=== PATIENT | female | born 1945 | race Caucasian/White ===

== ENCOUNTER 2022-03-02 15:23 | Inpatient (IN) ==
[2022-03-02] MEDS ORDERED: Ondansetron 4 MG/2 ML VIAL IVP PRN (20:29)
[2022-03-02] MEDS ORDERED: Naloxone 0.4 MG/ML INJ IVP PRN (20:29)
[2022-03-02] MEDS ORDERED: Dextrose 4 GM Chewable Tablets PO PRN ×2 (20:32)
[2022-03-02] MEDS ORDERED: *HR* Dextrose 50 % in Water (Syg) 50 ML SYRINGE IVP PRN (20:32)
[2022-03-02] MEDS ORDERED: D5% in Water 1,000 ML IVC PRN (20:32)
[2022-03-02 21:10] LABS: Red Cell Distribution Width 15.9 % (11.5-14.5)
[2022-03-02 21:11] LABS: Basophils % 0.4 %; Eosinophils # 0.1 K/mcL (0.0-0.6); Eosinophils % 1.4 %; Hematocrit 25.5 % (35.3-44.9); Hemoglobin 7.2 g/dL (11.5-15.4); Immature Granulocytes % 0.5 % (0-4); Lymphocytes # 1.9 K/mcL (0.6-4.6); Lymphocytes % 20.6 %; Mean Corpuscular HGB Conc 28.2 g/dL (31.6-35.5); Mean Corpuscular Hemoglobin 25.4 pg (28.0-33.3); Mean Corpuscular Volume 90.1 fL (83.0-100.0); Monocytes # 0.6 K/mcL (0.0-1.3); Monocytes % 6.3 %; Neutrophils # 6.6 K/mcL (1.6-8.9); Platelet Count 287 K/mcL (140-400); Red Blood Count 2.83 M/mcL (3.82-4.97); Segmented Neutrophils % 70.8 %; White Blood Count 9.3 K/mcL (4.3-11.1)
[2022-03-02 21:24] LABS: Albumin 3.6 g/dL (3.5-5.7); Albumin/Globulin Ratio 1.6 (1.1-2.2); Bilirubin,Total 0.3 mg/dL (0.3-1.0); Calcium 8.9 mg/dL (8.6-10.3); Globulin 2.3 g/dL (2.4-3.5); INR 1.1; Potassium 3.8 mEq/L (3.5-5.1); Prothrombin Time 12.1 Seconds (9.4-12.1); Total Protein 5.9 g/dL (6.4-8.9)
[2022-03-02 21:27] LABS: Activated Partial Thrombo Time 27.2 Seconds (26.0-36.0)
[2022-03-02] MEDS: cefTRIAXone 1,000 MG in 0.9 % Sodium Chloride Mini Bag 100 ML IVPB SCH (21:46)
[2022-03-02] MEDS: MetroNIDAZOLE 500 MG/100 ML 500 MG/100 ML BAG IVPB SCH (21:46)
[2022-03-02 21:54] LABS: Hypochromasia Present (Not Present); Macrocytosis Present (Not Present); Platelet Estimate Normal (Normal); Polychromasia 1+ (Not Present)
[2022-03-02] MEDS: Insulin LISPRO 300 UNITS/3 ML VIAL SUBQ SCH (23:21)
[2022-03-02] MEDS: Capsaicin 0.025% 60 GM TUBE TP PRN (23:25)
[2022-03-03] MEDS ORDERED: Perflutren Lipid Microsphere 1.3 ML in 0.9 % Sodium Chloride 8.7 ML IVP PRN (00:24)
[2022-03-03 00:27] LABS: Bilirubin,Urine Negative (Negative); Blood,Urine Negative (Negative); Clarity,Urine Clear (Clear); Color,Urine Yellow (Yellow); Glucose,Urine (UA) Normal (Normal); Ketones,Urine Negative (Negative); Leukocyte Esterase,Urine Large (Negative); Mucus,Urine Few per lpf (None-Few); Nitrite,Urine Negative (Negative); Protein,Urine 70 mg/dL (Neg-Trace); Specific Gravity,Urine > 1.030 (1.010-1.025); Squamous Epithelial Cell,Urine Few per hpf (None-Few); Urobilinogen,Urine Normal (Normal); WBC,Urine 50-100 per hpf (0-3)
[2022-03-03] MEDS: MetroNIDAZOLE 500 MG/100 ML 500 MG/100 ML BAG IVPB SCH ×3 (04:57→20:29)
[2022-03-03] MEDS: Pantoprazole 40 MG VIAL IVP SCH ×2 (04:58→17:22)
[2022-03-03 05:18] LABS: Red Blood Count 2.82 M/mcL (3.82-4.97); Red Cell Distribution Width 16.3 % (11.5-14.5)
[2022-03-03 05:19] LABS: Hematocrit 25.2 % (35.3-44.9); Hemoglobin 7.4 g/dL (11.5-15.4); Mean Corpuscular HGB Conc 29.4 g/dL (31.6-35.5); Mean Corpuscular Hemoglobin 26.2 pg (28.0-33.3); Mean Corpuscular Volume 89.4 fL (83.0-100.0); Mean Platelet Volume 11.3 fL (9.4-12.4); Platelet Count 271 K/mcL (140-400); White Blood Count 11.7 K/mcL (4.3-11.1)
[2022-03-03 05:39] LABS: Chol/HDL Ratio 2.3 (0-4.9)
[2022-03-03 05:43] LABS: Calcium 8.9 mg/dL (8.6-10.3); Potassium 3.6 mEq/L (3.5-5.1)
[2022-03-03] MEDS: Insulin LISPRO 300 UNITS/3 ML VIAL SUBQ SCH (05:52)
[2022-03-03 06:22] LABS: Estimated Average Glucose 148 mg/dl; Hemoglobin A1C 6.8 %
[2022-03-03] MEDS: Furosemide 40 MG/4 ML VIAL IVP SCH ×2 (08:16→20:29)
[2022-03-03 10:26] LABS: Hematocrit 26.4 % (35.3-44.9); Hemoglobin 7.7 g/dL (11.5-15.4)
[2022-03-03] MEDS ORDERED: methylPREDNISolone 125 MG/2 ML VIAL IVP ONE (11:11)
[2022-03-03] MEDS ORDERED: Albuterol 2.5 MG/3 ML NEBULIZER IH PRN (11:11)
[2022-03-03] MEDS: Albuterol 2.5 MG/3 ML NEBULIZER IH SCH ×4 (12:40→19:42)
[2022-03-03] MEDS: MethylPREDNISolone 40 MG/ML VIAL IVP SCH (17:21)
[2022-03-03 18:27] LABS: Hematocrit 26.5 % (35.3-44.9); Hemoglobin 8.1 g/dL (11.5-15.4)
[2022-03-03] MEDS: cefTRIAXone 1,000 MG in 0.9 % Sodium Chloride Mini Bag 100 ML IVPB SCH (20:28)
[2022-03-03] MEDS: Capsaicin 0.025% 60 GM TUBE TP PRN (20:28)
[2022-03-03] MEDS ORDERED: Insulin LISPRO 300 UNITS/3 ML VIAL SUBQ ONE (22:38)
[2022-03-03 23:06] LABS: Hematocrit 27.7 % (35.3-44.9); Hemoglobin 8.4 g/dL (11.5-15.4)
[2022-03-04] MEDS ORDERED: Insulin DETEMIR 100 UNIT/ML X5UNITS SUBQ ONE (02:21)
[2022-03-04] MEDS: Albuterol 2.5 MG/3 ML NEBULIZER IH SCH ×6 (04:19→23:11)
[2022-03-04] MEDS: MetroNIDAZOLE 500 MG/100 ML 500 MG/100 ML BAG IVPB SCH ×3 (05:40→19:53)
[2022-03-04] MEDS: MethylPREDNISolone 40 MG/ML VIAL IVP SCH ×2 (05:40→16:32)
[2022-03-04] MEDS: Pantoprazole 40 MG VIAL IVP SCH (05:41)
[2022-03-04] MEDS: Capsaicin 0.025% 60 GM TUBE TP PRN (05:41)
[2022-03-04 06:53] LABS: Basophils % 0.2 %; Hematocrit 26.7 % (35.3-44.9); Hemoglobin 7.9 g/dL (11.5-15.4); Immature Granulocytes % 0.7 % (0-4); Lymphocytes % 6.6 %; Mean Corpuscular HGB Conc 29.6 g/dL (31.6-35.5); Mean Corpuscular Hemoglobin 26.2 pg (28.0-33.3); Mean Corpuscular Volume 88.7 fL (83.0-100.0); Mean Platelet Volume 11.3 fL (9.4-12.4); Monocytes # 0.4 K/mcL (0.0-1.3); Monocytes % 2.4 %; Nucleated Red Blood Cells 0.1 /100 WBC (0); Platelet Count 307 K/mcL (140-400); Red Blood Count 3.01 M/mcL (3.82-4.97); Segmented Neutrophils % 90.1 %; White Blood Count 15.5 K/mcL (4.3-11.1)
[2022-03-04] MEDS: Cefepime HCl 2,000 MG in 0.9 % Sodium Chloride Mini Bag 100 ML IVPB SCH ×2 (08:33→15:21)
[2022-03-04] MEDS: Furosemide 40 MG/4 ML VIAL IVP SCH (08:33)
[2022-03-04] MEDS: Vancomycin 2,000 MG/520 ML IV.SOLN IVPB SCH ×2 (08:36→21:43)
[2022-03-04 09:00] LABS: Alanine Aminotransferase 11 Units/L (7-52); Albumin 3.5 g/dL (3.5-5.7); Albumin/Globulin Ratio 1.3 (1.1-2.2); Alkaline Phosphatase 46 Units/L (34-104); Aspartate Amino Transferase 17 Units/L (13-39); BUN/Creatinine Ratio 15 (6-26); Bilirubin,Total 0.4 mg/dL (0.3-1.0); Blood Urea Nitrogen 16 mg/dL (8-23); Calcium 8.9 mg/dL (8.6-10.3); Carbon Dioxide 29 mEq/L (23-29); Chloride 101 mEq/L (98-107); Globulin 2.6 g/dL (2.4-3.5); Glucose 237 mg/dL (70-105); Osmolality,Calculated 299 (280-300); Potassium 4.1 mEq/L (3.5-5.1); Sodium 140 mEq/L (136-145); Total Protein 6.1 g/dL (6.4-8.9); eGFR For African Americans > 60 (> 60); eGFR For Non-African Americans 51 (> 60)
[2022-03-04] MEDS: Insulin LISPRO 300 UNITS/3 ML VIAL SUBQ SCH ×2 (11:37→16:32)
[2022-03-04 17:22] LABS: % Iron Saturation 4 % (15-50); Iron 15 mcg/dL (50-170); Transferrin 290 mg/dL (203-362)
[2022-03-04 17:40] LABS: Ferritin 12 ng/mL (10-120)
[2022-03-04 17:47] LABS: Folate > 22.3 ng/mL (3.0-16.0); Vitamin B12 1343 pg/mL (250-1100)
[2022-03-04 18:56] LABS: Hematocrit 25.8 % (35.3-44.9); Hemoglobin 7.8 g/dL (11.5-15.4)
[2022-03-04] MEDS ORDERED: Insulin LISPRO 300 UNITS/3 ML VIAL SUBQ SCH (21:00)
[2022-03-05] MEDS: Cefepime HCl 2,000 MG in 0.9 % Sodium Chloride Mini Bag 100 ML IVPB SCH ×4 (00:03→23:03)
[2022-03-05] MEDS: Albuterol 2.5 MG/3 ML NEBULIZER IH SCH ×7 (03:42→23:20)
[2022-03-05] MEDS: MetroNIDAZOLE 500 MG/100 ML 500 MG/100 ML BAG IVPB SCH ×3 (05:09→20:20)
[2022-03-05] MEDS: MethylPREDNISolone 40 MG/ML VIAL IVP SCH ×2 (05:09→17:02)
[2022-03-05 07:03] LABS: Basophils # 0.1 K/mcL (0.0-0.2); Basophils % 0.3 %; Eosinophils # 0.1 K/mcL (0.0-0.6); Eosinophils % 0.4 %; Hematocrit 25.1 % (35.3-44.9); Hemoglobin 7.6 g/dL (11.5-15.4); Immature Granulocytes % 0.7 % (0-4); Lymphocytes # 1.1 K/mcL (0.6-4.6); Lymphocytes % 6.5 %; Mean Corpuscular HGB Conc 30.3 g/dL (31.6-35.5); Mean Corpuscular Hemoglobin 26.7 pg (28.0-33.3); Mean Corpuscular Volume 88.1 fL (83.0-100.0); Mean Platelet Volume 12.2 fL (9.4-12.4); Monocytes # 0.9 K/mcL (0.0-1.3); Monocytes % 5.6 %; Neutrophils # 14.5 K/mcL (1.6-8.9); Platelet Count 280 K/mcL (140-400); Red Blood Count 2.85 M/mcL (3.82-4.97); Red Cell Distribution Width 16.3 % (11.5-14.5); Segmented Neutrophils % 86.5 %; White Blood Count 16.7 K/mcL (4.3-11.1)
[2022-03-05 07:07] LABS: Albumin 3.4 g/dL (3.5-5.7); Albumin/Globulin Ratio 1.4 (1.1-2.2); Bilirubin,Total 0.5 mg/dL (0.3-1.0); Globulin 2.5 g/dL (2.4-3.5); Potassium 4.5 mEq/L (3.5-5.1); Total Protein 5.9 g/dL (6.4-8.9)
[2022-03-05] MEDS: Vancomycin 2,000 MG/520 ML IV.SOLN IVPB SCH (08:11)
[2022-03-05] MEDS: Insulin LISPRO 300 UNITS/3 ML VIAL SUBQ SCH ×3 (08:12→16:55)
[2022-03-05] MEDS: Aspirin Enteric Coated 325 MG Tablet PO SCH (08:13)
[2022-03-05] MEDS: Loratadine 10 MG TABLET PO SCH (08:13)
[2022-03-05] MEDS: amLODIPine 5 MG TABLET PO SCH (08:13)
[2022-03-05] MEDS: Isosorbide MONOnitrate (24 HR) 30 MG TAB.ER.24H PO SCH (08:13)
[2022-03-05] MEDS: Ranolazine 500 MG TAB.ER.12H PO SCH ×2 (08:13→21:14)
[2022-03-05] MEDS: Furosemide 40 MG/4 ML VIAL IVP SCH (08:14)
[2022-03-05] MEDS: allopurinoL 100 MG TABLET PO SCH (08:14)
[2022-03-05] MEDS: carvediloL 25 MG TABLET PO SCH ×2 (08:19→16:55)
[2022-03-05] MEDS: Fluticasone Propionate Nasal 50 MCG/SPRAY BOTTLE NS SCH (09:17)
[2022-03-05] MEDS: Capsaicin 0.025% 60 GM TUBE TP PRN (10:59)
[2022-03-05 12:20] LABS: Adenovirus Not Detected (Not Detect); Bordetella Pertussis Not Detected (Not Detect); Chlamydophila pneumoniae Not Detected (Not Detect); Coronavirus 229E Not Detected (Not Detect); Coronavirus HKU1 Not Detected (Not Detect); Coronavirus NL63 Not Detected (Not Detect); Coronavirus OC43 Not Detected (Not Detect); Human Metapneumovirus Not Detected (Not Detect); Human Rhinovirus/Enterovirus Not Detected (Not Detect); Influenza A Subtype 2009 H1 Not Detected (Not Detect); Influenza B Not Detected (Not Detect); Mycoplasma pneumoniae Not Detected (Not Detect); Parainfluenza Virus 1 Not Detected (Not Detect); Parainfluenza Virus 2 Not Detected (Not Detect); Parainfluenza Virus 3 Not Detected (Not Detect); Parainfluenza Virus 4 Not Detected (Not Detect); Respiratory Syncytial Virus Not Detected (Not Detect); SARS-CoV-2 Not Detected (Not Detect)
[2022-03-05] MEDS: Nystatin POWDER 30 GM BOTTLE TP SCH (21:14)
[2022-03-06 03:36] LABS: Basophils % 0.1 %; Eosinophils % 0.1 %; Hematocrit 24.8 % (35.3-44.9); Hemoglobin 7.4 g/dL (11.5-15.4); Immature Granulocytes % 0.9 % (0-4); Lymphocytes # 0.7 K/mcL (0.6-4.6); Lymphocytes % 4.9 %; Mean Corpuscular HGB Conc 29.8 g/dL (31.6-35.5); Mean Corpuscular Hemoglobin 26.8 pg (28.0-33.3); Mean Corpuscular Volume 89.9 fL (83.0-100.0); Mean Platelet Volume 11.6 fL (9.4-12.4); Monocytes # 0.5 K/mcL (0.0-1.3); Monocytes % 3.8 %; Neutrophils # 12.1 K/mcL (1.6-8.9); Platelet Count 278 K/mcL (140-400); Red Blood Count 2.76 M/mcL (3.82-4.97); Red Cell Distribution Width 16.1 % (11.5-14.5); Segmented Neutrophils % 90.2 %; White Blood Count 13.4 K/mcL (4.3-11.1)
[2022-03-06] MEDS: Albuterol 2.5 MG/3 ML NEBULIZER IH SCH ×7 (03:55→23:37)
[2022-03-06 04:03] LABS: Alanine Aminotransferase 12 Units/L (7-52); Albumin 3.5 g/dL (3.5-5.7); Albumin/Globulin Ratio 1.6 (1.1-2.2); Alkaline Phosphatase 41 Units/L (34-104); Aspartate Amino Transferase 9 Units/L (13-39); BUN/Creatinine Ratio 22 (6-26); Bilirubin,Total 0.5 mg/dL (0.3-1.0); Blood Urea Nitrogen 23 mg/dL (8-23); Calcium 8.8 mg/dL (8.6-10.3); Carbon Dioxide 31 mEq/L (23-29); Chloride 100 mEq/L (98-107); Globulin 2.2 g/dL (2.4-3.5); Glucose 317 mg/dL (70-105); Osmolality,Calculated 302 (280-300); Potassium 4.3 mEq/L (3.5-5.1); Sodium 138 mEq/L (136-145); Total Protein 5.7 g/dL (6.4-8.9); eGFR For African Americans > 60 (> 60); eGFR For Non-African Americans 50 (> 60)
[2022-03-06] MEDS: MetroNIDAZOLE 500 MG/100 ML 500 MG/100 ML BAG IVPB SCH ×3 (05:16→22:08)
[2022-03-06] MEDS: MethylPREDNISolone 40 MG/ML VIAL IVP SCH (05:16)
[2022-03-06] MEDS: Furosemide 40 MG/4 ML VIAL IVP SCH (08:23)
[2022-03-06] MEDS: Aspirin Enteric Coated 325 MG Tablet PO SCH (08:23)
[2022-03-06] MEDS: amLODIPine 5 MG TABLET PO SCH (08:24)
[2022-03-06] MEDS: Ranolazine 500 MG TAB.ER.12H PO SCH ×2 (08:24→22:08)
[2022-03-06] MEDS: Fluticasone Propionate Nasal 50 MCG/SPRAY BOTTLE NS SCH (08:25)
[2022-03-06] MEDS: Acetaminophen 325 MG TABLET PO PRN (08:25)
[2022-03-06] MEDS: carvediloL 25 MG TABLET PO SCH ×2 (08:25→15:52)
[2022-03-06] MEDS: allopurinoL 100 MG TABLET PO SCH (08:26)
[2022-03-06] MEDS: Insulin LISPRO 300 UNITS/3 ML VIAL SUBQ SCH ×3 (08:26→17:55)
[2022-03-06] MEDS: Loratadine 10 MG TABLET PO SCH (08:26)
[2022-03-06] MEDS: Cefepime HCl 2,000 MG in 0.9 % Sodium Chloride Mini Bag 100 ML IVPB SCH (08:27)
[2022-03-06] MEDS: Nystatin POWDER 30 GM BOTTLE TP SCH ×2 (08:28→22:09)
[2022-03-06] MEDS: Isosorbide MONOnitrate (24 HR) 30 MG TAB.ER.24H PO SCH (08:30)
[2022-03-06] MEDS ORDERED: Vancomycin 2,000 MG/520 ML IV.SOLN IVPB SCH (09:00)
[2022-03-06] MEDS: polyethylene glycoL 3350 17 GM POWD.PACK PO SCH (10:30)
[2022-03-06] MEDS ORDERED: Insulin DETEMIR 100 UNIT/ML X5UNITS SUBQ ONE (11:19)
[2022-03-06] MEDS ORDERED: Isovue-370 500 ML BOTTLE IVP ONE (11:22)
[2022-03-06] MEDS: Capsaicin 0.025% 60 GM TUBE TP PRN (22:09)
[2022-03-07] MEDS: Acetaminophen 325 MG TABLET PO PRN (00:10)
[2022-03-07] MEDS: Albuterol 2.5 MG/3 ML NEBULIZER IH SCH ×6 (04:17→23:28)
[2022-03-07] MEDS: MetroNIDAZOLE 500 MG/100 ML 500 MG/100 ML BAG IVPB SCH ×3 (05:14→21:27)
[2022-03-07 05:45] LABS: Basophils % 0.2 %; Eosinophils # 0.4 K/mcL (0.0-0.6); Eosinophils % 3.3 %; Hematocrit 21.8 % (35.3-44.9); Hemoglobin 6.5 g/dL (11.5-15.4); Immature Granulocytes % 0.7 % (0-4); Lymphocytes # 1.3 K/mcL (0.6-4.6); Lymphocytes % 11.8 %; Mean Corpuscular HGB Conc 29.8 g/dL (31.6-35.5); Mean Corpuscular Hemoglobin 26.5 pg (28.0-33.3); Mean Platelet Volume 11.7 fL (9.4-12.4); Monocytes # 0.9 K/mcL (0.0-1.3); Monocytes % 8.6 %; Nucleated Red Blood Cells 0.2 /100 WBC (0); Platelet Count 203 K/mcL (140-400); Red Blood Count 2.45 M/mcL (3.82-4.97); Red Cell Distribution Width 15.9 % (11.5-14.5); Segmented Neutrophils % 75.4 %; White Blood Count 10.6 K/mcL (4.3-11.1)
[2022-03-07 06:04] LABS: Calcium 8.4 mg/dL (8.6-10.3); Magnesium 2.2 mg/dL (1.6-2.6); Potassium 3.8 mEq/L (3.5-5.1)
[2022-03-07 08:26] LABS: Thyroid Stimulating Hormone 1.974 mcIU/mL (0.340-5.600)
[2022-03-07] MEDS: Insulin LISPRO 300 UNITS/3 ML VIAL SUBQ SCH ×3 (08:56→17:25)
[2022-03-07] MEDS: Furosemide 40 MG/4 ML VIAL IVP SCH (08:58)
[2022-03-07] MEDS: predniSONE 20 MG TABLET PO SCH (08:58)
[2022-03-07] MEDS: Ranolazine 500 MG TAB.ER.12H PO SCH ×2 (08:58→21:27)
[2022-03-07] MEDS: amLODIPine 5 MG TABLET PO SCH (08:59)
[2022-03-07] MEDS: carvediloL 25 MG TABLET PO SCH ×2 (09:00→17:26)
[2022-03-07] MEDS: Loratadine 10 MG TABLET PO SCH (09:00)
[2022-03-07] MEDS: allopurinoL 100 MG TABLET PO SCH (09:00)
[2022-03-07] MEDS: Aspirin Enteric Coated 325 MG Tablet PO SCH (09:00)
[2022-03-07] MEDS: Isosorbide MONOnitrate (24 HR) 30 MG TAB.ER.24H PO SCH (09:01)
[2022-03-07] MEDS: polyethylene glycoL 3350 17 GM POWD.PACK PO SCH (09:01)
[2022-03-07] MEDS ORDERED: 0.9 % Sodium Chloride 250 ML ONE (11:18)
[2022-03-07] MEDS: Fluticasone Propionate Nasal 50 MCG/SPRAY BOTTLE NS SCH (11:20)
[2022-03-07] MEDS: Nystatin POWDER 30 GM BOTTLE TP SCH ×2 (11:20→21:27)
[2022-03-07] MEDS ORDERED: *HR* Dextrose 50 % in Water (Syg) 50 ML SYRINGE IVP PRN (23:10)
[2022-03-07] MEDS ORDERED: D5% in Water 1,000 ML IVC PRN (23:10)
[2022-03-07] MEDS ORDERED: Dextrose 4 GM Chewable Tablets PO PRN ×2 (23:10)
[2022-03-08] MEDS: Insulin LISPRO 300 UNITS/3 ML VIAL SUBQ SCH ×5 (00:06→21:57)
[2022-03-08] MEDS: Albuterol 2.5 MG/3 ML NEBULIZER IH SCH ×6 (04:08→23:32)
[2022-03-08] MEDS: MetroNIDAZOLE 500 MG/100 ML 500 MG/100 ML BAG IVPB SCH ×3 (05:55→21:55)
[2022-03-08 06:34] LABS: Basophils % 0.2 %; Eosinophils # 0.5 K/mcL (0.0-0.6); Eosinophils % 4.3 %; Hematocrit 26.5 % (35.3-44.9); Lymphocytes # 0.9 K/mcL (0.6-4.6); Lymphocytes % 7.1 %; Mean Corpuscular HGB Conc 30.2 g/dL (31.6-35.5); Mean Corpuscular Hemoglobin 26.8 pg (28.0-33.3); Mean Corpuscular Volume 88.6 fL (83.0-100.0); Mean Platelet Volume 11.7 fL (9.4-12.4); Monocytes # 0.9 K/mcL (0.0-1.3); Monocytes % 7.1 %; Platelet Count 234 K/mcL (140-400); Red Blood Count 2.99 M/mcL (3.82-4.97); Red Cell Distribution Width 15.4 % (11.5-14.5); Segmented Neutrophils % 80.3 %; White Blood Count 12.5 K/mcL (4.3-11.1)
[2022-03-08] MEDS ORDERED: Insulin DETEMIR 100 UNIT/ML X5UNITS SUBQ ONE ×2 (07:48→08:30)
[2022-03-08] MEDS: predniSONE 20 MG TABLET PO SCH (08:39)
[2022-03-08] MEDS: Ranolazine 500 MG TAB.ER.12H PO SCH ×2 (08:39→21:54)
[2022-03-08] MEDS: allopurinoL 100 MG TABLET PO SCH (08:39)
[2022-03-08] MEDS: Isosorbide MONOnitrate (24 HR) 30 MG TAB.ER.24H PO SCH (08:39)
[2022-03-08] MEDS: Loratadine 10 MG TABLET PO SCH (08:39)
[2022-03-08] MEDS: carvediloL 25 MG TABLET PO SCH ×2 (08:39→17:39)
[2022-03-08] MEDS: amLODIPine 5 MG TABLET PO SCH (08:40)
[2022-03-08] MEDS: Aspirin Enteric Coated 325 MG Tablet PO SCH (08:41)
[2022-03-08] MEDS: Fluticasone Propionate Nasal 50 MCG/SPRAY BOTTLE NS SCH (08:44)
[2022-03-08] MEDS: Nystatin POWDER 30 GM BOTTLE TP SCH ×2 (08:44→21:58)
[2022-03-08] MEDS: polyethylene glycoL 3350 17 GM POWD.PACK PO SCH (08:44)
[2022-03-08] MEDS: Furosemide 40 MG/4 ML VIAL IVP SCH (08:45)
[2022-03-08] MEDS: Melatonin 3 MG TABLET PO PRN (22:12)
[2022-03-08] MEDS: Capsaicin 0.025% 60 GM TUBE TP PRN (22:12)
[2022-03-09] MEDS: Acetaminophen 325 MG TABLET PO PRN (01:11)
[2022-03-09] MEDS: Albuterol 2.5 MG/3 ML NEBULIZER IH SCH ×6 (03:36→23:29)
[2022-03-09] MEDS: MetroNIDAZOLE 500 MG/100 ML 500 MG/100 ML BAG IVPB SCH ×2 (06:06→13:59)
[2022-03-09] MEDS: polyethylene glycoL 3350 17 GM POWD.PACK PO SCH (09:53)
[2022-03-09] MEDS: allopurinoL 100 MG TABLET PO SCH (09:54)
[2022-03-09] MEDS: predniSONE 20 MG TABLET PO SCH (09:54)
[2022-03-09] MEDS: amLODIPine 5 MG TABLET PO SCH (09:54)
[2022-03-09] MEDS: Ranolazine 500 MG TAB.ER.12H PO SCH ×2 (09:54→20:40)
[2022-03-09] MEDS: Aspirin Enteric Coated 325 MG Tablet PO SCH (09:54)
[2022-03-09] MEDS: Isosorbide MONOnitrate (24 HR) 30 MG TAB.ER.24H PO SCH (09:54)
[2022-03-09] MEDS: Fluticasone Propionate Nasal 50 MCG/SPRAY BOTTLE NS SCH (09:55)
[2022-03-09] MEDS: Loratadine 10 MG TABLET PO SCH (09:55)
[2022-03-09] MEDS: Insulin LISPRO 300 UNITS/3 ML VIAL SUBQ SCH ×4 (09:55→20:41)
[2022-03-09] MEDS: Furosemide 40 MG/4 ML VIAL IVP SCH (09:57)
[2022-03-09] MEDS: Nystatin POWDER 30 GM BOTTLE TP SCH ×2 (10:20→20:42)
[2022-03-09] MEDS: carvediloL 25 MG TABLET PO SCH ×2 (10:20→16:55)
[2022-03-09 14:18] LABS: Basophils % 0.3 %; Eosinophils # 0.5 K/mcL (0.0-0.6); Eosinophils % 3.9 %; Hematocrit 29.4 % (35.3-44.9); Hemoglobin 8.9 g/dL (11.5-15.4); Immature Granulocytes % 0.9 % (0-4); Lymphocytes # 0.8 K/mcL (0.6-4.6); Lymphocytes % 6.1 %; Mean Corpuscular HGB Conc 30.3 g/dL (31.6-35.5); Mean Corpuscular Hemoglobin 26.6 pg (28.0-33.3); Mean Platelet Volume 11.4 fL (9.4-12.4); Monocytes # 0.5 K/mcL (0.0-1.3); Monocytes % 3.6 %; Neutrophils # 11.5 K/mcL (1.6-8.9); Platelet Count 215 K/mcL (140-400); Red Blood Count 3.34 M/mcL (3.82-4.97); Red Cell Distribution Width 16.1 % (11.5-14.5); Segmented Neutrophils % 85.2 %; White Blood Count 13.4 K/mcL (4.3-11.1)
[2022-03-09 14:37] LABS: Calcium 8.3 mg/dL (8.6-10.3); Potassium 4.1 mEq/L (3.5-5.1)
[2022-03-09] MEDS: Capsaicin 0.025% 60 GM TUBE TP PRN (16:56)
[2022-03-09] MEDS: Insulin DETEMIR 100 UNIT/ML X5UNITS SUBQ SCH (20:41)
[2022-03-09] MEDS: Melatonin 3 MG TABLET PO PRN (22:25)
[2022-03-10 03:15] LABS: Basophils % 0.3 %; Eosinophils # 0.2 K/mcL (0.0-0.6); Eosinophils % 1.8 %; Hematocrit 27.3 % (35.3-44.9); Hemoglobin 8.4 g/dL (11.5-15.4); Immature Granulocytes % 1.3 % (0-4); Lymphocytes # 1.4 K/mcL (0.6-4.6); Mean Corpuscular HGB Conc 30.8 g/dL (31.6-35.5); Mean Corpuscular Hemoglobin 26.8 pg (28.0-33.3); Mean Corpuscular Volume 86.9 fL (83.0-100.0); Mean Platelet Volume 11.5 fL (9.4-12.4); Monocytes # 0.8 K/mcL (0.0-1.3); Monocytes % 6.3 %; Neutrophils # 9.8 K/mcL (1.6-8.9); Nucleated Red Blood Cells 0.2 /100 WBC (0); Platelet Count 234 K/mcL (140-400); Red Blood Count 3.14 M/mcL (3.82-4.97); Red Cell Distribution Width 15.9 % (11.5-14.5); Segmented Neutrophils % 79.3 %; White Blood Count 12.4 K/mcL (4.3-11.1)
[2022-03-10] MEDS: Albuterol 2.5 MG/3 ML NEBULIZER IH SCH ×6 (06:02→23:11)
[2022-03-10] MEDS: Insulin LISPRO 300 UNITS/3 ML VIAL SUBQ SCH ×4 (08:20→22:05)
[2022-03-10] MEDS: carvediloL 25 MG TABLET PO SCH ×2 (08:21→16:20)
[2022-03-10] MEDS: predniSONE 20 MG TABLET PO SCH (08:21)
[2022-03-10] MEDS: Loratadine 10 MG TABLET PO SCH (08:21)
[2022-03-10] MEDS: Isosorbide MONOnitrate (24 HR) 30 MG TAB.ER.24H PO SCH (08:21)
[2022-03-10] MEDS: Aspirin Enteric Coated 325 MG Tablet PO SCH (08:21)
[2022-03-10] MEDS: Ranolazine 500 MG TAB.ER.12H PO SCH ×2 (08:21→22:04)
[2022-03-10] MEDS: amLODIPine 5 MG TABLET PO SCH (08:21)
[2022-03-10] MEDS: allopurinoL 100 MG TABLET PO SCH (08:22)
[2022-03-10] MEDS: Furosemide 40 MG/4 ML VIAL IVP SCH (08:22)
[2022-03-10] MEDS: Fluticasone Propionate Nasal 50 MCG/SPRAY BOTTLE NS SCH (08:22)
[2022-03-10] MEDS: polyethylene glycoL 3350 17 GM POWD.PACK PO SCH (08:22)
[2022-03-10] MEDS: Nystatin POWDER 30 GM BOTTLE TP SCH ×2 (08:23→22:05)
[2022-03-10] MEDS ORDERED: *HR* Heparin 5,000 UNIT/ML VIAL IVP PRN ×4 (10:53→11:03)
[2022-03-10] MEDS ORDERED: Heparin 25,000UNIT/250ML 1/2NS 25,000 UNIT/250 ML IV.SOLN IVC SCH ×2 (11:00→11:15)
[2022-03-10 16:32] LABS: Hematocrit 29.5 % (35.3-44.9); Mean Corpuscular HGB Conc 30.5 g/dL (31.6-35.5); Mean Corpuscular Hemoglobin 26.9 pg (28.0-33.3); Mean Corpuscular Volume 88.1 fL (83.0-100.0); Mean Platelet Volume 11.8 fL (9.4-12.4); Platelet Count 246 K/mcL (140-400); Red Blood Count 3.35 M/mcL (3.82-4.97); Red Cell Distribution Width 16.5 % (11.5-14.5); White Blood Count 13.3 K/mcL (4.3-11.1)
[2022-03-10 16:40] LABS: INR 1.1; Prothrombin Time 12.8 Seconds (9.4-12.1)
[2022-03-10 16:43] LABS: Heparin anti-factor XA UFH 0.04 IU/mL (0.30-0.70)
[2022-03-10] MEDS: Melatonin 3 MG TABLET PO PRN (22:04)
[2022-03-10] MEDS: Insulin DETEMIR 100 UNIT/ML X5UNITS SUBQ SCH (22:04)
[2022-03-11 01:11] LABS: Hematocrit 28.5 % (35.3-44.9); Hemoglobin 8.6 g/dL (11.5-15.4)
[2022-03-11] MEDS: Albuterol 2.5 MG/3 ML NEBULIZER IH SCH ×6 (03:30→23:29)
[2022-03-11 06:18] LABS: Hematocrit 29.1 % (35.3-44.9); Hemoglobin 8.7 g/dL (11.5-15.4)
[2022-03-11] MEDS ORDERED: Insulin DETEMIR 100 UNIT/ML X5UNITS SUBQ ONE (07:54)
[2022-03-11] MEDS: polyethylene glycoL 3350 17 GM POWD.PACK PO SCH (09:21)
[2022-03-11] MEDS: predniSONE 20 MG TABLET PO SCH (09:22)
[2022-03-11] MEDS: Isosorbide MONOnitrate (24 HR) 30 MG TAB.ER.24H PO SCH (09:23)
[2022-03-11] MEDS: amLODIPine 5 MG TABLET PO SCH (09:23)
[2022-03-11] MEDS: carvediloL 25 MG TABLET PO SCH ×2 (09:23→17:59)
[2022-03-11] MEDS: Loratadine 10 MG TABLET PO SCH (09:23)
[2022-03-11] MEDS: allopurinoL 100 MG TABLET PO SCH (09:23)
[2022-03-11] MEDS: Aspirin Enteric Coated 325 MG Tablet PO SCH (09:23)
[2022-03-11] MEDS: Ranolazine 500 MG TAB.ER.12H PO SCH ×2 (09:23→21:12)
[2022-03-11] MEDS: Furosemide 40 MG/4 ML VIAL IVP SCH (09:24)
[2022-03-11] MEDS: Fluticasone Propionate Nasal 50 MCG/SPRAY BOTTLE NS SCH (09:25)
[2022-03-11] MEDS: Insulin LISPRO 300 UNITS/3 ML VIAL SUBQ SCH ×4 (09:26→21:12)
[2022-03-11] MEDS: Nystatin POWDER 30 GM BOTTLE TP SCH ×2 (09:27→21:12)
[2022-03-11 12:21] LABS: Hematocrit 30.8 % (35.3-44.9); Hemoglobin 9.3 g/dL (11.5-15.4)
[2022-03-11] MEDS ORDERED: SODIUM CHLORIDE/NAHCO3/KCL/PEG 4,000 ML SOLN.RECON PO ONE (17:00)
[2022-03-11] MEDS ORDERED: Insulin DETEMIR 100 UNIT/ML X5UNITS SUBQ SCH (21:00)
[2022-03-11] MEDS: Melatonin 3 MG TABLET PO PRN (21:11)
[2022-03-12] MEDS: Acetaminophen 325 MG TABLET PO PRN ×3 (04:00→21:32)
[2022-03-12] MEDS: Albuterol 2.5 MG/3 ML NEBULIZER IH SCH ×6 (04:23→23:22)
[2022-03-12] MEDS: Insulin LISPRO 300 UNITS/3 ML VIAL SUBQ SCH ×4 (07:39→21:34)
[2022-03-12] MEDS: Nystatin POWDER 30 GM BOTTLE TP SCH ×2 (08:01→21:35)
[2022-03-12] MEDS: polyethylene glycoL 3350 17 GM POWD.PACK PO SCH (08:01)
[2022-03-12] MEDS: Aspirin Enteric Coated 325 MG Tablet PO SCH (08:32)
[2022-03-12] MEDS: Furosemide 40 MG TABLET PO SCH (08:32)
[2022-03-12] MEDS: amLODIPine 5 MG TABLET PO SCH (08:33)
[2022-03-12] MEDS: Isosorbide MONOnitrate (24 HR) 30 MG TAB.ER.24H PO SCH (08:33)
[2022-03-12] MEDS: Loratadine 10 MG TABLET PO SCH (08:33)
[2022-03-12] MEDS: carvediloL 25 MG TABLET PO SCH ×2 (08:33→16:52)
[2022-03-12] MEDS: allopurinoL 100 MG TABLET PO SCH (08:33)
[2022-03-12] MEDS: Ranolazine 500 MG TAB.ER.12H PO SCH ×2 (08:34→21:33)
[2022-03-12] MEDS: Fluticasone Propionate Nasal 50 MCG/SPRAY BOTTLE NS SCH (08:34)
[2022-03-12 08:41] LABS: Hematocrit 31.5 % (35.3-44.9); Hemoglobin 9.4 g/dL (11.5-15.4)
[2022-03-12] MEDS ORDERED: *HR* FentaNYL (PF) 100 MCG/2 ML VIAL ONE (15:47)
[2022-03-12] MEDS ORDERED: *HR* Propofol 200 MG/20 ML VIAL IVP ONE ×2 (15:47→17:06)
[2022-03-12] MEDS ORDERED: EPHEDrine 50 MG/ML VIAL ONE (15:48)
[2022-03-12] MEDS ORDERED: Albuterol 2.5 MG/3 ML NEBULIZER IH ONE (18:58)
[2022-03-12] MEDS ORDERED: Albuterol 2.5 MG/3 ML NEBULIZER ONE (19:00)
[2022-03-12] MEDS: Melatonin 3 MG TABLET PO PRN (21:33)
[2022-03-12] MEDS: Insulin DETEMIR 100 UNIT/ML X5UNITS SUBQ SCH (21:34)
[2022-03-13] MEDS: Capsaicin 0.025% 60 GM TUBE TP PRN (01:49)
[2022-03-13] MEDS: Albuterol 2.5 MG/3 ML NEBULIZER IH SCH ×6 (03:54→23:14)
[2022-03-13 05:15] LABS: Basophils # 0.1 K/mcL (0.0-0.2); Basophils % 0.6 %; Eosinophils # 0.4 K/mcL (0.0-0.6); Eosinophils % 3.5 %; Hematocrit 31.1 % (35.3-44.9); Hemoglobin 9.3 g/dL (11.5-15.4); Immature Granulocytes % 1.2 % (0-4); Lymphocytes # 2.4 K/mcL (0.6-4.6); Lymphocytes % 22.6 %; Mean Corpuscular HGB Conc 29.9 g/dL (31.6-35.5); Mean Corpuscular Hemoglobin 26.7 pg (28.0-33.3); Mean Corpuscular Volume 89.4 fL (83.0-100.0); Mean Platelet Volume 12.2 fL (9.4-12.4); Monocytes # 0.8 K/mcL (0.0-1.3); Monocytes % 7.7 %; Neutrophils # 6.7 K/mcL (1.6-8.9); Platelet Count 246 K/mcL (140-400); Red Blood Count 3.48 M/mcL (3.82-4.97); Red Cell Distribution Width 17.2 % (11.5-14.5); Segmented Neutrophils % 64.4 %; White Blood Count 10.4 K/mcL (4.3-11.1)
[2022-03-13 05:34] LABS: Calcium 8.7 mg/dL (8.6-10.3); Potassium 3.5 mEq/L (3.5-5.1)
[2022-03-13] MEDS: Insulin LISPRO 300 UNITS/3 ML VIAL SUBQ SCH ×4 (07:56→20:23)
[2022-03-13] MEDS: polyethylene glycoL 3350 17 GM POWD.PACK PO SCH (07:57)
[2022-03-13] MEDS: carvediloL 25 MG TABLET PO SCH ×2 (07:58→17:14)
[2022-03-13] MEDS: allopurinoL 100 MG TABLET PO SCH (07:58)
[2022-03-13] MEDS: Aspirin Enteric Coated 325 MG Tablet PO SCH (07:58)
[2022-03-13] MEDS: amLODIPine 5 MG TABLET PO SCH (07:58)
[2022-03-13] MEDS: Isosorbide MONOnitrate (24 HR) 30 MG TAB.ER.24H PO SCH (07:58)
[2022-03-13] MEDS: Ranolazine 500 MG TAB.ER.12H PO SCH ×2 (07:59→20:25)
[2022-03-13] MEDS: Loratadine 10 MG TABLET PO SCH (07:59)
[2022-03-13] MEDS: Furosemide 40 MG TABLET PO SCH (07:59)
[2022-03-13] MEDS: Fluticasone Propionate Nasal 50 MCG/SPRAY BOTTLE NS SCH (09:19)
[2022-03-13] MEDS: Nystatin POWDER 30 GM BOTTLE TP SCH ×2 (09:20→20:25)
[2022-03-13] MEDS: *HR* Rivaroxaban 15 MG TABLET PO SCH (17:14)
[2022-03-13] MEDS: Insulin DETEMIR 100 UNIT/ML X5UNITS SUBQ SCH (20:22)
[2022-03-13] MEDS: Acetaminophen 325 MG TABLET PO PRN (20:22)
[2022-03-13] MEDS: Melatonin 3 MG TABLET PO PRN (20:22)
[2022-03-13] MEDS ORDERED: *HR* Rivaroxaban 15 MG TABLET PO SCH (21:00)
[2022-03-14] MEDS: Acetaminophen 325 MG TABLET PO PRN ×3 (01:04→21:46)
[2022-03-14 01:36] LABS: Basophils % 0.4 %; Eosinophils # 0.2 K/mcL (0.0-0.6); Eosinophils % 2.8 %; Hematocrit 31.5 % (35.3-44.9); Hemoglobin 9.4 g/dL (11.5-15.4); Immature Granulocytes % 1.2 % (0-4); Lymphocytes # 2.3 K/mcL (0.6-4.6); Lymphocytes % 30.3 %; Mean Corpuscular HGB Conc 29.8 g/dL (31.6-35.5); Mean Corpuscular Hemoglobin 26.9 pg (28.0-33.3); Mean Corpuscular Volume 90.3 fL (83.0-100.0); Mean Platelet Volume 11.5 fL (9.4-12.4); Monocytes # 0.6 K/mcL (0.0-1.3); Monocytes % 8.4 %; Neutrophils # 4.2 K/mcL (1.6-8.9); Platelet Count 210 K/mcL (140-400); Red Blood Count 3.49 M/mcL (3.82-4.97); Red Cell Distribution Width 17.2 % (11.5-14.5); Segmented Neutrophils % 56.9 %; White Blood Count 7.5 K/mcL (4.3-11.1)
[2022-03-14] MEDS: Albuterol 2.5 MG/3 ML NEBULIZER IH SCH ×6 (04:23→23:37)
[2022-03-14] MEDS: Fluticasone Propionate Nasal 50 MCG/SPRAY BOTTLE NS SCH (09:09)
[2022-03-14] MEDS: Nystatin POWDER 30 GM BOTTLE TP SCH ×2 (09:09→22:20)
[2022-03-14] MEDS: Loratadine 10 MG TABLET PO SCH (09:10)
[2022-03-14] MEDS: Furosemide 40 MG TABLET PO SCH (09:10)
[2022-03-14] MEDS: allopurinoL 100 MG TABLET PO SCH (09:10)
[2022-03-14] MEDS: Isosorbide MONOnitrate (24 HR) 30 MG TAB.ER.24H PO SCH (09:10)
[2022-03-14] MEDS: carvediloL 25 MG TABLET PO SCH ×2 (09:11→16:59)
[2022-03-14] MEDS: amLODIPine 5 MG TABLET PO SCH (09:11)
[2022-03-14] MEDS: polyethylene glycoL 3350 17 GM POWD.PACK PO SCH (09:13)
[2022-03-14] MEDS: Aspirin 81 MG TAB.CHEW PO SCH (09:13)
[2022-03-14] MEDS: Insulin LISPRO 300 UNITS/3 ML VIAL SUBQ SCH ×4 (09:14→21:47)
[2022-03-14] MEDS: Ranolazine 500 MG TAB.ER.12H PO SCH ×2 (09:14→21:46)
[2022-03-14 15:13] LABS: Influenza A PCR Negative (Negative); Influenza B PCR Negative (Negative); Resp. Syncytial Virus PCR Negative (Negative)
[2022-03-14 15:15] LABS: SARS-CoV-2 by PCR (In House) Negative (Negative)
[2022-03-14] MEDS: *HR* Rivaroxaban 15 MG TABLET PO SCH (16:59)
[2022-03-14] MEDS: Melatonin 3 MG TABLET PO PRN (21:46)
[2022-03-14] MEDS: Insulin DETEMIR 100 UNIT/ML X5UNITS SUBQ SCH (21:51)
[2022-03-14] MEDS: Capsaicin 0.025% 60 GM TUBE TP PRN (22:47)
[2022-03-15] MEDS: Acetaminophen 325 MG TABLET PO PRN (03:23)
[2022-03-15] MEDS: Albuterol 2.5 MG/3 ML NEBULIZER IH SCH ×2 (03:48→08:27)
[2022-03-15 06:39] VITALS: BP 151/80; PULSE 77; TEMP 97.9; O2SAT 95
[2022-03-15] MEDS: Insulin LISPRO 300 UNITS/3 ML VIAL SUBQ SCH (08:41)
[2022-03-15] MEDS: Loratadine 10 MG TABLET PO SCH (08:43)
[2022-03-15] MEDS: Furosemide 40 MG TABLET PO SCH (08:43)
[2022-03-15] MEDS: carvediloL 25 MG TABLET PO SCH (08:43)
[2022-03-15] MEDS: polyethylene glycoL 3350 17 GM POWD.PACK PO SCH (08:43)
[2022-03-15] MEDS: Ranolazine 500 MG TAB.ER.12H PO SCH (08:43)
[2022-03-15] MEDS: Aspirin 81 MG TAB.CHEW PO SCH (08:43)
[2022-03-15] MEDS: Nystatin POWDER 30 GM BOTTLE TP SCH (08:44)
[2022-03-15] MEDS: amLODIPine 5 MG TABLET PO SCH (08:44)
[2022-03-15] MEDS: Isosorbide MONOnitrate (24 HR) 30 MG TAB.ER.24H PO SCH (08:44)
[2022-03-15] MEDS: Fluticasone Propionate Nasal 50 MCG/SPRAY BOTTLE NS SCH (08:44)
[2022-03-15] MEDS: allopurinoL 100 MG TABLET PO SCH (08:44)
== END 2022-03-15 09:40 | DRG 871 ==
LOC: 3BNU → SUATTDRO 03-04 15:00
PROVIDERS: ADMIT Internal Medicine; ATTEND Nurse Practitioner
PROC: ENDOEBX (2022-03-12 17:00)